=== PATIENT | female | born 1980 | race Asian ===

== ENCOUNTER → 2018-01-28 | Outpatient (CLI) | payer OTHER | END | disposition home or self-care (01) | LOC: US 18:30 | PROC: BW4GZZZ Ultrasonography of Pelvic Region (ICD-10-PCS; principal; 2018-01-28) | DX: N92.6 Irregular menstruation, unspecified (principal) ==

== ENCOUNTER → 2018-11-21 | Outpatient (CLI) | payer OTHER | END | disposition home or self-care (01) | LOC: LB 16:50 | DX: N97.0 Female infertility associated with anovulation (principal) ==

== ENCOUNTER → 2019-05-28 | Outpatient (CLI) | payer OTHER | END | disposition home or self-care (01) | LOC: LB 14:28 | DX: Z11.3 Encounter for screening for infections with a predominantly sexual mode of transmission (principal) ==

== ENCOUNTER → 2019-06-01 | Outpatient (CLI) | payer OTHER ==
[2019-06-01 13:35] LABS: ALBUMIN 3.2 g/dL (3.4-5.0); ALT/SGPT 29 U/L (14-59); AST/SGOT 17 U/L (15-37); BILIRUBIN DIRECT 0.05 mg/dL (0.0-0.2); BILIRUBIN TOTAL 0.3 mg/dL (0.20-1.00); TOTAL PROTEIN, SERUM 7.1 g/dL (6.4-8.2)
[2019-06-01 13:36] LABS: ALKALINE PHOSPHATASE 45 U/L (46-116)
== END | disposition home or self-care (01) ==
LOC: LB 12:27
DX: B19.10 Unspecified viral hepatitis B without hepatic coma (principal)

== ENCOUNTER → 2020-03-28 | Outpatient (CLI) | payer OTHER ==
[2020-03-31 17:05] LABS: ESTRIOL < 0.1 ng/mL (.)
== END | disposition home or self-care (01) ==
LOC: LB 17:24
DX: E28.9 Ovarian dysfunction, unspecified (principal)